=== PATIENT | male | born 1995 | race Caucasian/White ===

== ENCOUNTER 2020-01-21 22:35 | Emergency (ER) | payer OTHER, BC ==
[~2020-01-21] VITALS: Ht 177.8 cm; Wt 124.7 kg
[2020-01-21 22:40] VITALS: BP 137/87
--- NOTE | 2020-01-21 22:43 | NUR ---
PT AMBUALTED TO BED 7 WITH STEADY GAIT.
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
--- NOTE | 2020-01-21 23:00 | NUR ---
EKG IN PROGRESS
[2020-01-21] MEDS ORDERED: NACL 0.9% 1,000 ML IV ONE (23:05)
[2020-01-21] MEDS ORDERED: ONDANSETRON 4 MG/2 ML VIAL IVP ONE (23:05)
[2020-01-21] MEDS ORDERED: MORPHINE SULFATE 4 MG/ML SYR IVP ONE (23:05)
--- NOTE | 2020-01-21 23:25 | NUR ---
[facility] ESTABLISHED RIGHT A/C. LABS DRAWN, MEDS ADMINISTERED
[2020-01-21 23:30] LABS: BASOPHILS # (AUTO) 0.1 K/uL (0.00-0.22); BASOPHILS % (AUTO) 0.8 % (0.0-2.0); EOSINOPHILS # (AUTO) 0.1 K/uL (0-0.4); EOSINOPHILS % (AUTO) 0.8 % (0.0-4.0); HEMATOCRIT 50.8 % (36-52); HEMOGLOBIN 17.7 g/dL (12.0-18.0); LYMPHOCYTES % (AUTO) 18.8 % (20.5-51.1); MEAN CORPUSCULAR HEMOGLOBIN 28 pg (27-31); MEAN CORPUSCULAR HGB CONC 35 g/dL (33-37); MEAN CORPUSCULAR VOLUME 80.2 fL (80-94); MONOCYTES # (AUTO) 0.6 K/uL (0.8-1.0); MONOCYTES % (AUTO) 5.4 % (1.7-9.3); NEUTROPHILS # (AUTO) 7.7 K/uL (1.8-7.7); NEUTROPHILS % (AUTO) 74.2 % (42.2-75.2); PLATELET COUNT (AUTO) 272 K/uL (140-450); RED BLOOD CELL COUNT(AUTO) 6.33 MIL/uL (4.20-6.10); WHITE BLOOD COUNT (AUTO) 10.4 K/uL (4.8-10.8)
[2020-01-21 23:38] LABS: ALBUMIN 4.5 g/dL (3.4-5.0); CARBON DIOXIDE 28.8 mmol/L (21-32); CREATININE 0.9 mg/dL (0.6-1.3); POTASSIUM 3.8 mmol/L (3.5-5.1); TOTAL BILIRUBIN 0.6 mg/dL (0.0-1.0)
--- NOTE | 2020-01-22 00:43 | NUR ---
RETURNED FROM CT
--- NOTE | 2020-01-22 02:40 | NUR ---
XRAY AT BEDSIDE FOR LEFT HAND X-RAY
[2020-01-22 02:41] VITALS: BP 111/66
== END 2020-01-22 03:24 | disposition home or self-care (01) ==
LOC: MED 22:35
DX: R07.9 Chest pain, unspecified (principal); F17.200 Nicotine dependence, unspecified, uncomplicated; V89.2XXA Person injured in unspecified motor-vehicle accident, traffic, initial encounter; Y93.89 Activity, other specified; Y92.89 Other specified places as the place of occurrence of the external cause; Y99.8 Other external cause status
CPT/HCPCS: 36415; 71260; 73130; 74177; 80053; 83036; 85025; 90471; 90715; 96361; 96374; 96375; 99285; J2270; J2405; J7030